=== PATIENT | female | born 2000 | race African-American/Black ===

== ENCOUNTER 2019-03-26 15:32 | Emergency (ER) | payer MEDICAID ==
[~2019-03-26] VITALS: Ht 162.6 cm; Wt 5839.0 kg
[2019-03-26 15:39] VITALS: BP 122/65
[2019-03-26] MEDS ORDERED: DEXAMETHASONE 4MG TABLET PO ONE (17:15)
[2019-03-26] MEDS ORDERED: ACETAMINOPHEN WITH CODEINE 300/30MG TABLET PO ONE (17:15)
[2019-03-26] MEDS ORDERED: KETOROLAC 30MG/ML VIAL IV ONE (17:15)
== END 2019-03-26 17:49 | disposition home or self-care (01) ==
LOC: ER 15:32
DX: J32.9 Chronic sinusitis, unspecified (principal)
CPT/HCPCS: 96374; 99283; J1885; J8540